=== PATIENT | male | born 1980 | race Two or more races ===

== ENCOUNTER 2025-02-05 01:13 | Emergency (ER) | payer OTHER ==
[~2025-02-05] VITALS: Ht 188 cm; Wt 118.8 kg
[2025-02-05] MEDS ORDERED: KETOROLAC TROMETHAMINE INJ 30 MG/ML VIAL ONE (02:10)
[2025-02-05] MEDS: KETOROLAC TROMETHAMINE INJ 30 MG/ML VIAL IV ONE (02:11)
[2025-02-05 02:19] LABS: PLATELET COUNT (AUTO) 272 K/uL (150-450); RED BLOOD CELL COUNT(AUTO) 4.49 MIL/uL (4.5-6.0); RED CELL DISTRIBUTION WIDTH 14.6 % (11.5-15.0); WHITE BLOOD COUNT (AUTO) 12.1 K/uL (4.3-11.0)
[2025-02-05 02:23] LABS: ERYTHROCYTE SEDIMENTATION RATE 33 MM/HR (0-15)
[2025-02-05 02:32] LABS: CALCIUM, SERUM 9.1 mg/dL (8.5-10.1); CREATININE 1.4 mg/dL (0.6-1.3); SODIUM SERUM 135.0 mmol/L (136-145); UREA NITROGEN, BLOOD 12.0 mg/dL (7-18)
[2025-02-05 02:38] LABS: ASPARTATE AMINOTRANSFERASE 18.0 U/L (15-37); TOTAL PROTEIN, SERUM 7.5 g/dL (6.4-8.2)
[2025-02-05 02:40] LABS: LACTIC ACID 1.0 mmol/L (0.4-2.0)
[2025-02-05] MEDS ORDERED: INDO50CA92 PO (03:46)
[2025-02-05] MEDS ORDERED: ONDANSETRON 4 MG TAB.RAPDIS ONE (04:41)
[2025-02-05] MEDS ORDERED: HYDROMORPHONE 1 MG/1 ML DISP.SYRIN ONE (04:41)
[2025-02-05] MEDS: ONDANSETRON 4 MG TAB.RAPDIS PO ONE (04:42)
[2025-02-05] MEDS: HYDROMORPHONE 1 MG/1 ML DISP.SYRIN IM ONE (04:42)
[2025-02-05 04:57] VITALS: BP 138/84; TEMP 98.9; O2SAT 98
== END 2025-02-05 04:58 | disposition home or self-care (01) ==
LOC: ER 01:15
DX: M25.561 Pain in right knee (principal); M10.9 Gout, unspecified; Z59.00 Homelessness unspecified; Z85.850 Personal history of malignant neoplasm of thyroid; Z88.5 Allergy status to narcotic agent; Z90.89 Acquired absence of other organs
CPT/HCPCS: 99284; 96374; 73564; 85025; 87040; 83605; 85652; 84550; 36415; 80053; 96372; J1885; Q0162; J1171